=== PATIENT | male | born 1995 | race Caucasian/White ===

== ENCOUNTER 2018-10-28 02:07 | Emergency (ER) | payer SELFPAY ==
[~2018-10-28] VITALS: Ht 172.7 cm; Wt 93.0 kg
[2018-10-28 02:20] VITALS: BP 150/80
[2018-10-28] MEDS ORDERED: DIPHTH,PERTUSS(ACELL),TET TOX 0.5 ML DISP.SYRIN. VAX IM ONE (02:30)
[2018-10-28] MEDS ORDERED: LIDOCAINE 1%/EPI 1:100,000 20 ML VIAL. INJ ONE (02:30)
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
--- NOTE | 2018-10-28 03:14 | RAD ---
CT head without contrast 10/28/2018. Reason for exam: Head injury. Gash above left eye. Noncontrast images were performed. Exposure: One or more of the following individualized dose reduction techniques were utilized for this examination: 1. Automated exposure control 2. Adjustment of the mA and/or kV according to patient size 3. Use of iterative reconstruction technique. FINDINGS: There is no apparent intracranial hemorrhage or abnormal extra-axial fluid collection. No area of abnormal density is seen in the brain. The ventricles and basilar cisterns are normally positioned. Soft tissue swelling is seen above the left eye. Bone windows demonstrate a small superficial chip off the frontal bone without extension through the entire cortex or into the frontal sinus. There is overlying soft tissue injury. No other fracture is seen. The sinuses and mastoid air cells appear clear. Impression: No evidence of intracranial injury. Surface chip fracture off the frontal bone without extension through the bone into the cranial vault or sinuses. Electronically signed by: Ananth Murrieta Jr., MD (10/28/2018 3:09 AM) [facility]
[2018-10-28] MEDS ORDERED: NEOMY/BACITR/POLYMYXIN OINT PACKET. TP ONE ×2 (03:28→03:30)
[2018-10-28] MEDS ORDERED: CEPH-264 PO (03:33)
== END 2018-10-28 03:35 | disposition home or self-care (01) ==
LOC: ER 02:07
DX: S02.0XXA Fracture of vault of skull, initial encounter for closed fracture (principal); S01.81XA Laceration without foreign body of other part of head, initial encounter; F17.210 Nicotine dependence, cigarettes, uncomplicated; Z88.0 Allergy status to penicillin; Y08.89XA Assault by other specified means, initial encounter; Y93.89 Activity, other specified; Y92.89 Other specified places as the place of occurrence of the external cause; Y99.8 Other external cause status
CPT/HCPCS: 12014; 70450; 90471; 90715; 99284; J3490

== ENCOUNTER 2020-07-29 11:59 | Emergency (ER) | payer SELFPAY ==
[~2020-07-29] VITALS: Ht 175.3 cm; Wt 93.0 kg
[~2020-07-29 11:59] MED LIST: CEPH-264 PO
[2020-07-29 13:27] VITALS: BP 122/72
--- NOTE | 2020-07-29 13:51 | RAD ---
3 views left foot without comparison for pain and swelling from a fall last . FINDINGS: There is no fracture, dislocation, or acute osseous abnormality identified. Joints and soft tissues are grossly unremarkable. No radiopaque foreign bodies. IMPRESSION: 1. No acute osseous abnormality. Electronically signed by: Matty Arvizu MD (07/29/2020 1:48 PM) [id number]
[2020-07-29] MEDS ORDERED: METH4TAB2 PO (14:28)
--- NOTE | 2020-07-29 14:28 | PHYS DOC ---
Past Medical History Past Medical History: No Pertinent History Past Surgical History: No Surgical History Smoking Status: Current Every Day Smoker Alcohol Use: None Drug Use: None General Adult EDM: Chief Complaint: FOOT INJURY PAIN HPI: HPI: Patient is a 25 year old male who presents to the ED today with moderate pain to the left ankle and left foot that began on last week after he fell. Patient describes the pain as sharp and constant worse on weightbearing. He states he was seen at [facility] they did x-rays which were negative, he states he was sent home with naproxen which is not helping with his pain. He would like something else for the pain. Review of Systems: Review of Systems: Constitutional: Denies fever or chills. []] Musculoskeletal: Reports left ankle pain, left foot pain Integument: Denies rash. [] Neurologic: Denies headache, focal weakness or sensory changes. [] Psychiatric: Denies depression or anxiety. [] Heart Score: Risk Factors: Risk Factors: DM, Current or recent (<one month) smoker, HTN, HLP, family history of CAD, obesity. Risk Scores: Score 0 - 3: 2.5% MACE over next 6 weeks - Discharge Home Score 4 - 6: 20.3% MACE over next 6 weeks - Admit for Clinical Observation Score 7 - 10: 72.7% MACE over next 6 weeks - Early Invasive Strategies Allergies: Allergies: Allergies Coded Allergies Type Severity Reaction Last Updated Verified Penicillins Allergy Unknown UNKNOWN 10/28/18 Yes Physical Exam: PE: Constitutional: Well developed, well nourished, no acute distress, non-toxic appearance. [] Skin: Warm, dry, no erythema, no rash. [] Back: No tenderness, no CVA tenderness. [] Extremities: Lateral ankle and dorsal foot with mild soft tissue swelling and bruising. Tenderness on palpation of the left foot and ankle. Limited range of motion to the left foot and ankle due to pain. +2 left pedal pulse. Cap refill less than 2 seconds to left toes. Neurologic: Alert and oriented X 3, normal motor function, normal sensory function, no focal deficits noted. [] Psychologic: Affect normal, judgement normal, mood normal. [] Current Patient Data: Vital Signs: Vital Signs Date Time Temp Pulse Resp B/P (MAP) Pulse Ox O2 Delivery O2 Flow Rate FiO2 07/29/20 13:27 98.3 60 16 122/72 (89) 96 Room Air 98.3 EKG: EKG: [] Radiology/Procedures: Radiology/Procedures: []PROCEDURE: FOOT LEFT 3V 3 views left foot without comparison for pain and swelling from a fall last . FINDINGS: There is no fracture, dislocation, or acute osseous abnormality identified. Joints and soft tissues are grossly unremarkable. No radiopaque foreign bodies. IMPRESSION: 1. No acute osseous abnormality. Electronically signed by: Matty Sears MD (07/29/2020 1:48 PM) [id number] DICTATED and SIGNED BY: MATTY SEARS MD DATE: 07/29/20 1346 Course & Med Decision Making: Course & Med Decision Making Pertinent Labs and Imaging studies reviewed. (See chart for details) This is a 25-year-old male patient presenting to the ED today complaining of left foot and left ankle pain that began on last week after he fell. Patient reports being seen at [facility] and had negative x-ray but states he was sent home with naproxen which is not helping with his pain. I checked K tracts, it showed patient was sent home with oxycodone 18 tablets on 07/26/2020. Informed patient and significant other ra information shows he was given prescription for oxycodone, the significant other started saying patient did not fill the prescription because he could not afford it. Informed them the prescription was filled. She continued to argue asking where the prescription was filled because they could not fill it due to affordability. Informed them will not write him anymore narcotic prescription. Recommended to continue taking naproxen and rx for medrol dose pack. Discharged home. His splint to the left lower extremity was redone by the RN, neurovascular exam is intact. Cooper Disclaimer: Cooper Disclaimer: This electronic medical record was generated, in whole or in part, using a voice recognition dictation system. Departure Departure Impression: Primary Impression: Left ankle sprain Qualified Codes: S93.402D - Sprain of unspecified ligament of left ankle, subsequent encounter Additional Impressions: Sprain of left foot Qualified Codes: S93.602D - Unspecified sprain of left foot, subsequent encounter Fall Qualified Codes: W19.XXXA - Unspecified fall, initial encounter Disposition: HOME, SELF-CARE Condition: STABLE Referrals: NO PCP (PCP) NICOLE DIEGO II, MD follow up in one week Patient Instructions: Joint Sprain Additional Instructions: Please follow-up with the provided orthopedic doctor or your own orthopedic doctor in 1 week. Try to ice and elevate the extremity. Scripts Methylprednisolone (MEDROL) 4 Mg Tab.ds.pk 1 PKG PO UD, #1 PKG Prov: FRIDA STERN APRN 07/29/20 Justicifation of Admission Dx: Justifications for Admission: Justification of Admission Dx: N/A FRIDA STERN APRN Jul 29, 2020 14:28
== END 2020-07-29 14:30 | disposition home or self-care (01) ==
LOC: ER 11:59
DX: S93.492A Sprain of other ligament of left ankle, initial encounter (principal); S93.692A Other sprain of left foot, initial encounter; R60.0 Localized edema; F17.200 Nicotine dependence, unspecified, uncomplicated; Z88.0 Allergy status to penicillin; W18.39XA Other fall on same level, initial encounter; Y93.89 Activity, other specified; Y92.89 Other specified places as the place of occurrence of the external cause; Y99.8 Other external cause status
CPT/HCPCS: 29515; 73630; 99284